=== PATIENT | female | born 1995 | race American Indian/Alaskan Native ===

== ENCOUNTER 2021-09-17 17:56 | Emergency (ER) | payer OTHER ==
[2021-09-17] MEDS ORDERED: ACETAMINOPHEN 500 MG TAB PO ONE (22:30)
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
[2021-09-18 00:20] LABS: Bilirubin,Urine NEG (Negative); Blood,Urine NEG (Negative); Color,Urine Yellow (Yellow); Mucus,Urine FEW /HPF; Protein,Urine <15 mg/dL mg/dL (Negative)
[2021-09-18 01:12] LABS: HCG Qualitative,Urine Negative (Negative)
--- NOTE | 2021-09-18 01:47 | XRay Report ---
CHEST 2 VIEWS INDICATION / CLINICAL INFORMATION: cough fever. COMPARISON: None available. FINDINGS: SUPPORT DEVICES: None. HEART / MEDIASTINUM: No significant abnormality. LUNGS / PLEURA: No significant pulmonary or pleural abnormality. No pneumothorax. ADDITIONAL FINDINGS: No significant additional findings. IMPRESSION: 1. No acute findings. Signer Name: Jonathan Farris DO Signed: 09/18/2021 1:43 AM Workstation Name: [id number]
[2021-09-18 02:21] VITALS: BP 144/90
== END 2021-09-18 02:21 | disposition home or self-care (01) ==
LOC: ED 17:56
DX: M79.18 Myalgia, other site (principal); R50.9 Fever, unspecified; B34.9 Viral infection, unspecified; Z79.899 Other long term (current) drug therapy
CPT/HCPCS: 71046; 81001; 81025; 99283

== ENCOUNTER 2021-10-30 22:09 | Emergency (ER) | payer OTHER ==
[2021-10-30] MEDS ORDERED: TETANUS,DIPH,PERTUSS(ACELL) VACCINE 0.5 ML SYRINGE IM ONE (23:12)
[2021-10-30] MEDS ORDERED: ACETAMINOPHEN 500 MG TAB PO ONE (23:12)
[2021-10-30] MEDS ORDERED: cephALEXin 500 MG CAP PO ONE (23:12)
[2021-10-30] MEDS ORDERED: LIDOCAINE (1%) 10 MG/1 ML VIAL 20 ML MDV INFILTRATI ONE (23:13)
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
[2021-10-31 01:12] VITALS: BP 127/82
== END 2021-10-31 01:12 | disposition home or self-care (01) ==
LOC: ED 22:09
DX: S51.812A Laceration without foreign body of left forearm, initial encounter (principal); S51.011A Laceration without foreign body of right elbow, initial encounter; X58.XXXA Exposure to other specified factors, initial encounter; Y93.89 Activity, other specified; Y92.89 Other specified places as the place of occurrence of the external cause; Y99.8 Other external cause status
CPT/HCPCS: 90471; 90715; 99283